=== PATIENT | female | born 1980 | race Caucasian/White ===

== ENCOUNTER 2018-12-11 11:57 | Emergency (ER) | payer OTHER ==
[~2018-12-11] VITALS: Ht 154.9 cm; Wt 93.0 kg
[2018-12-11] MEDS: KETOROLAC 30 MG/ML VIAL. IM ONE (12:38)
[2018-12-11] MEDS: HYDROcodone/APAP 5/325MG 1 TAB TABLET PO ONE (12:47)
[2018-12-11 12:56] LABS: BACTERIA,URINE MOD /HPF (0-FEW); BILIRUBIN,URINE NEG (NEG); CLARITY,URINE CLEAR; COLOR,URINE YELLOW; GLUCOSE,URINE NEG (NEG); NITRITE,URINE NEG (NEG); RBC,URINE 0 /HPF (0-2); SQUAMOUS EPITHELIAL CELL,UR MOD /LPF; UROBILINOGEN,URINE 0.2 mg/dL (0.2 mg/dL)
[2018-12-11] MEDS ORDERED: CYCL-331 PO (13:17)
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
[2018-12-11 13:26] VITALS: BP 145/94
== END 2018-12-11 13:26 | disposition home or self-care (01) ==
LOC: ER 11:57
DX: M54.5 Low back pain (principal); G89.11 Acute pain due to trauma; Z90.89 Acquired absence of other organs; V43.92XA Unspecified car occupant injured in collision with other type car in traffic accident, initial encounter; Y93.89 Activity, other specified; Y92.488 Other paved roadways as the place of occurrence of the external cause; Y99.8 Other external cause status
CPT/HCPCS: 72100; 81001; 81025; 87086; 96372; 99285; J1885